=== PATIENT | male | born 1995 | race Caucasian/White ===

== ENCOUNTER 2019-05-29 12:20 | Emergency (ER) | payer SELFPAY ==
--- NOTE | 2019-05-29 13:27 | ER Document Report ---
Addendum entered and electronically signed by BILL JARRELL LPC 05/29/19 15:59: Discharge - Discharge Clinical Impression: ETOH abuse, Alcohol intoxication, Desire for detoxification Condition: Stable Disposition: HOME, SELF-CARE Additional Instructions: *You have been evaluated for medical clearance for detox *Follow up with detox now *Return to ED for worsening condition, changes, needs You have been evaluated by both medical and behavioral health providers while in the emergency department. You have been cleared from both acute medical and psychiatric services. You utilized [facility] to help you obtain voluntary alcohol inpatient detoxification and treatment. your alcohol levels were too high initially for the [facility] and has had time to decrease. They still have a bed available for you. You are to go directly to the [facility] facility upon discharge from the emergency department. Acute Alcohol Intoxication Your evaluation revealed very high levels of alcohol. You can from drinking a large amount of alcohol rapidly! Further, there's the risk of falls, traffic accidents, and fights. A high portion (about 50 percent) of the serious injuries seen in hospital emergency rooms are caused by alcohol. Alcohol overdosage is usually due to an underlying emotional or psychiatric problem. You may benefit from counselling. If "binge" drinking is an ongoing problem for you, or if you drink ANY AMOUNT of alcohol EVERY day, you most likely have a tendency to alcoholism. You should avoid alcohol totally. We can refer you for treatment. Persons with alcohol problems are often also prone to other addictions -- you should discuss any use of medications or drugs with the doctor. You should be watched at home for the next several hours by someone who has not been drinking. Get extra fluids for the next 24 hours. Call the doctor if there is repeated vomiting, increasing headache, decreasing level of alertness, or any other worsening. Follow-Up Plan: [facility] coordinated care with [facility] and the [facility]. The [facility] has bed availability and you are to go directly there from discharge. Referrals: RENATA TSE MD [NO LOCAL MD] - Follow up as needed [facility] [Outside] - Follow up as needed Original Note: ED Medical Screen (RME) - General Chief Complaint: Medical Clearance Stated Complaint: DETOX Time Seen by Provider: 05/29/19 13:09 Primary Care Provider: RENATA TSE MD [Primary Care Provider] - Follow up as needed Mode of Arrival: Ambulatory Information source: Patient Notes: The patient presents to the emergency department with [facility]. Patient reports he drank a large amount of beer this morning. He called [facility] because he wanted to go into detox. [facility] took him to [facility]. He was preadmitted until patient blew 0.31. [facility] sent him over here for medical clearance. Patient denies drug use. Denies all other complaints fever vomiting diarrhea. Patient denies homicidal or suicidal ideations. I have greeted and performed a rapid initial assessment of this patient. A comprehensive ED assessment and evaluation of the patient, analysis of test results and completion of the medical decision making process will be conducted by additional ED providers. Dictation of this chart was performed using voice recognition software; therefore, there may be some unintended grammatical errors. TRAVEL OUTSIDE OF THE [place] IN LAST 30 DAYS: No - Related Data Allergies/Adverse Reactions: No Known Allergies Allergy (Verified 05/29/19 12:21) Past Medical History Psychiatric Medical History: Reports: Hx Depression - Immunizations Hx Diphtheria, Pertussis, Tetanus Vaccination: Yes Physical Exam - Vital signs Vitals: Temp Pulse Resp BP Pulse Ox 98.4 F 90 18 150/101 H 96 05/29/19 12:29 05/29/19 12:29 05/29/19 12:29 05/29/19 12:29 05/29/19 12:29 Course - Vital Signs Vital signs: Temp Pulse Resp BP Pulse Ox 98.4 F 90 18 150/101 H 96 05/29/19 12:29 05/29/19 12:29 05/29/19 12:29 05/29/19 12:29 05/29/19 12:29 Doctor's Discharge - Discharge Referrals: RENATA TSE MD [Primary Care Provider] - Follow up as needed
[2019-05-29 13:42] LABS: ABSOLUTE BASOPHILS # (AUTO) 0.1 10^3/uL (0.0-0.2); ABSOLUTE LYMPHOCYTES (AUTO) 1.6 10^3/uL (0.5-4.7); ABSOLUTE MONOCYTES (AUTO) 0.6 10^3/uL (0.1-1.4); ABSOLUTE NEUT (AUTO) 5.8 10^3/uL (1.7-8.2); BASOPHILS % (AUTO) 1.1 % (0-2); EOSINOPHILS % (AUTO) 0.5 % (0-6); HEMATOCRIT 47.6 % (37.9-51.0); HEMOGLOBIN 16.5 g/dL (13.5-17.0); LYMPHOCYTES % (AUTO) 19.7 % (13-45); MEAN CORPUSCULAR HEMOGLOBIN 36.6 pg (27.0-33.4); MEAN CORPUSCULAR HGB CONC 34.7 g/dL (32.0-36.0); MEAN CORPUSCULAR VOLUME 105 fl (80-97); MONOCYTES % (AUTO) 7.5 % (3-13); PLATELET COUNT 166 10^3/uL (150-450); RED BLOOD COUNT 4.51 10^6/uL (4.35-5.55); RED CELL DISTRIBUTION WIDTH 12.8 % (11.5-14.0); SEGMENTED NEUTROPHILS % (AUTO) 71.2 % (42-78); TOTAL CELLS COUNTED % (AUTO) 100 %; WHITE BLOOD COUNT 8.1 10^3/uL (4.0-10.5)
[2019-05-29 13:44] LABS: APPEARANCE,URINE CLEAR; BILIRUBIN,URINE NEGATIVE (NEGATIVE); COLOR,URINE STRAW; GLUCOSE, URINE NEGATIVE (NEGATIVE); KETONES,URINE NEGATIVE (NEGATIVE); LEUKOCYTE ESTERASE,URINE NEGATIVE (NEGATIVE); NITRITE,URINE NEGATIVE (NEGATIVE); PROTEIN,URINE 30 mg/dL (NEGATIVE); URINE SPECIFIC GRAVITY 1.003; UROBILINOGEN,URINE NEGATIVE mg/dL (<2.0)
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
[2019-05-29 13:59] LABS: URINE AMPHETAMINES SCREEN NEGATIVE; URINE BARBITURATES SCREEN NEGATIVE; URINE BENZODIAZEPINES SCREEN NEGATIVE; URINE COCAINE SCREEN NEGATIVE; URINE MARIJUANA (THC) SCREEN NEGATIVE; URINE METHADONE SCREEN NEGATIVE; URINE PHENCYCLIDINE SCREEN NEGATIVE
[2019-05-29 14:08] LABS: ALBUMIN 4.9 g/dL (3.5-5.0); ALCOHOL 267 mg/dL (NONE DETECTED); ALKALINE PHOSPHATASE 72 U/L (38-126); ANION GAP 12 (5-19); ASPARTATE AMINO TRANSFERASE 99 U/L (17-59); BILIRUBIN,DIRECT 0.3 mg/dL (0.0-0.4); BILIRUBIN,TOTAL 0.8 mg/dL (0.2-1.3); BLOOD UREA NITROGEN 7 mg/dL (7-20); CALCIUM 9.8 mg/dL (8.4-10.2); CARBON DIOXIDE 27 mmol/L (22-30); CHLORIDE 104 mmol/L (98-107); GLUCOSE 97 mg/dL (75-110); POTASSIUM 4.5 mmol/L (3.6-5.0); TOTAL PROTEIN 7.9 g/dL (6.3-8.2)
--- NOTE | 2019-05-29 14:12 | RADIOLOGY REPORT (SQ) ---
EXAM DESCRIPTION: CHEST 2 VIEWS COMPLETED DATE/TIME: 05/29/2019 2:02 pm REASON FOR STUDY: medical clearance COMPARISON: None. EXAM PARAMETERS: NUMBER OF VIEWS: two views TECHNIQUE: Digital Frontal and Lateral radiographic views of the chest acquired. RADIATION DOSE: NA LIMITATIONS: none FINDINGS: LUNGS AND PLEURA: No opacities, masses or pneumothorax. No pleural effusion. MEDIASTINUM AND HILAR STRUCTURES: No masses or contour abnormalities. HEART AND VASCULAR STRUCTURES: Heart normal size. No evidence for failure. BONES: No acute findings. HARDWARE: None in the chest. OTHER: No other significant finding. IMPRESSION: Normal chest x-ray. TECHNICAL DOCUMENTATION: JOB ID: [id number] [email or web address] Reserved Reading location - IP/workstation name: [email or web address]
[2019-05-29 16:35] VITALS: BP 153/96
--- NOTE | 2019-05-29 17:35 | EKG REPORT ---
SEVERITY:- NORMAL ECG - SINUS RHYTHM ST ELEV, PROBABLE NORMAL EARLY REPOL PATTERN : Confirmed by: Sae Rosenbaum MD 29-May-2019 17:34:22
== END 2019-05-29 16:36 | disposition home or self-care (01) ==
LOC: ER 12:20
DX: F10.129 Alcohol abuse with intoxication, unspecified (principal); F17.200 Nicotine dependence, unspecified, uncomplicated; Y90.8 Blood alcohol level of 240 mg/100 ml or more
CPT/HCPCS: 36415; 71046; 80053; 80307; 81001; 85025; 93005; 93010

== ENCOUNTER 2019-06-21 17:07 | Inpatient (IN) | payer SELFPAY ==
[2019-06-21 17:39] LABS: ABSOLUTE EOSINOPHILS # (AUTO) 0.1 10^3/uL (0.0-0.6); ABSOLUTE LYMPHOCYTES (AUTO) 2.6 10^3/uL (0.5-4.7); ABSOLUTE MONOCYTES (AUTO) 0.4 10^3/uL (0.1-1.4); BASOPHILS % (AUTO) 0.5 % (0-2); EOSINOPHILS % (AUTO) 0.7 % (0-6); HEMOGLOBIN 16.4 g/dL (13.5-17.0); LYMPHOCYTES % (AUTO) 31.8 % (13-45); MEAN CORPUSCULAR HEMOGLOBIN 36.2 pg (27.0-33.4); MEAN CORPUSCULAR HGB CONC 34.3 g/dL (32.0-36.0); MEAN CORPUSCULAR VOLUME 106 fl (80-97); MONOCYTES % (AUTO) 4.6 % (3-13); PLATELET COUNT 197 10^3/uL (150-450); RED BLOOD COUNT 4.54 10^6/uL (4.35-5.55); RED CELL DISTRIBUTION WIDTH 13.3 % (11.5-14.0); SEGMENTED NEUTROPHILS % (AUTO) 62.4 % (42-78); TOTAL CELLS COUNTED % (AUTO) 100 %; WHITE BLOOD COUNT 8.1 10^3/uL (4.0-10.5)
[2019-06-21 17:58] LABS: ALBUMIN 4.5 g/dL (3.5-5.0); ALKALINE PHOSPHATASE 64 U/L (38-126); ANION GAP 18 (5-19); ASPARTATE AMINO TRANSFERASE 57 U/L (17-59); BILIRUBIN,DIRECT 0.2 mg/dL (0.0-0.4); BILIRUBIN,TOTAL 0.3 mg/dL (0.2-1.3); BLOOD UREA NITROGEN 9 mg/dL (7-20); CALCIUM 9.2 mg/dL (8.4-10.2); CARBON DIOXIDE 20 mmol/L (22-30); CHLORIDE 108 mmol/L (98-107); GLUCOSE 90 mg/dL (75-110); POTASSIUM 4.3 mmol/L (3.6-5.0); TOTAL PROTEIN 7.3 g/dL (6.3-8.2)
[2019-06-21 18:00] LABS: APPEARANCE,URINE CLEAR; BILIRUBIN,URINE NEGATIVE (NEGATIVE); COLOR,URINE STRAW; GLUCOSE, URINE NEGATIVE (NEGATIVE); KETONES,URINE NEGATIVE (NEGATIVE); LEUKOCYTE ESTERASE,URINE NEGATIVE (NEGATIVE); NITRITE,URINE NEGATIVE (NEGATIVE); PROTEIN,URINE NEGATIVE (NEGATIVE); URINE SPECIFIC GRAVITY 1.004; UROBILINOGEN,URINE NEGATIVE mg/dL (<2.0)
[2019-06-21 18:02] LABS: ACETAMINOPHEN < 10 ug/mL (10-30); SALICYLATE < 1.0 mg/dL (2.0-20.0)
[2019-06-21 18:15] LABS: ALCOHOL 543 mg/dL (NONE DETECTED)
[2019-06-21 18:16] LABS: URINE AMPHETAMINES SCREEN NEGATIVE; URINE BARBITURATES SCREEN NEGATIVE; URINE BENZODIAZEPINES SCREEN NEGATIVE; URINE COCAINE SCREEN NEGATIVE; URINE MARIJUANA (THC) SCREEN NEGATIVE; URINE METHADONE SCREEN NEGATIVE; URINE PHENCYCLIDINE SCREEN NEGATIVE
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
[2019-06-21] MEDS ORDERED: DEXTROSE 50%-WATER 25 GM/50 ML DISP.SYRIN IV PRN ×2 (18:47)
[2019-06-21] MEDS ORDERED: HALOPERIDOL LACTATE INJ 5 MG/1 ML VIAL IM PRN (18:47)
[2019-06-21] MEDS ORDERED: GLUCAGON,HUMAN RECOMB 1 MG INJ SUBCUT PRN (18:47)
[2019-06-21] MEDS ORDERED: DEXTROSE 40% GEL 15 GM TUBE PO PRN ×2 (18:47)
--- NOTE | 2019-06-21 18:57 | PDOC H&P ---
History of Present Illness Admission Date/PCP: 06/21/19 18:36 GENESIS FLORES MD History of Present Illness: HALEY QIU is a 23 year old male who according to his mother is a "heavy drinker" and apparently found out he was going to get evicted this morning and told his mother he was going to kill himself somehow. She found him later passed out and unresponsive to sternal rub and so she called EMS. He managed to get him to the hospital and his toxicological screen was negative and he would not admit to taking any substances but his sister said he may have taken a few tabs of Vistaril. His alcohol level was 543. He urinated in his closed and whenever they tried to clean them up he got extremely hostile and combative and they had to call security in and ultimately wound up having to put him in four- point violent restraints. He is been involuntarily committed. Because of his violent behavior in the high likelihood that he will go into alcohol withdrawal, he is being admitted to the ICU. Past Medical History Psychiatric Medical History: Reports: Depression Social History Smoking Status: Current Every Day Smoker Family History Family History: Other - Father is on Neurontin. Parental Family History Reviewed: No - Unable to obtain Children Family History Reviewed: Unknown - Unable to obtain Sibling(s) Family History Reviewed.: No - Unable to obtain Medication/Allergy Allergies/Adverse Reactions: No Known Allergies Allergy (Verified 05/29/19 12:21) Review of Systems ROS unobtainable: Due to mental status Physical Exam General appearance: PRESENT: disheveled, mild distress, other - Acutely intoxicated. ABSENT: cooperative Head exam: ABSENT: atraumatic, normocephalic Eye exam: PRESENT: EOMI. ABSENT: conjunctival injection, nystagmus, scleral icterus Ear exam: PRESENT: normal external ear exam Neck exam: PRESENT: full ROM. ABSENT: JVD Respiratory exam: PRESENT: clear to auscultation sole, symmetrical, unlabored. ABSENT: accessory muscle use, chest wall tenderness, crackles, prolonged expiratory phas, rhonchi, tachypnea, wheezes Cardiovascular exam: PRESENT: RRR, +S1, +S2 Vascular exam: PRESENT: normal capillary refill GI/Abdominal exam: PRESENT: normal bowel sounds, soft. ABSENT: distended, guarding, rebound, tenderness Extremities exam: ABSENT: clubbing, pedal edema Musculoskeletal exam: PRESENT: normal inspection. ABSENT: deformity Neurological exam: PRESENT: altered, awake, oriented to person, oriented to place. ABSENT: oriented to time, oriented to situation Psychiatric exam: PRESENT: agitated, anxious, suicidal ideation Skin exam: PRESENT: dry, warm Results Laboratory Results: 06/21/19 17:20 06/21/19 17:20 06/21/19 06/21/19 06/21/19 17:20 17:20 17:20 WBC 8.1 RBC 4.54 Hgb 16.4 Hct 48.0 MCV 106 H MCH 36.2 H MCHC 34.3 RDW 13.3 Plt Count 197 Seg Neutrophils % 62.4 Sodium 145.6 H Potassium 4.3 Chloride 108 H Carbon Dioxide 20 L Anion Gap 18 BUN 9 Creatinine 0.71 Est GFR ( Amer) > 60 Glucose 90 Calcium 9.2 Total Bilirubin 0.3 AST 57 Alkaline Phosphatase 64 Total Protein 7.3 Albumin 4.5 Urine Color STRAW Urine Appearance CLEAR Urine pH 5.0 Ur Specific [place] 1.004 Urine Protein NEGATIVE Urine Glucose (UA) NEGATIVE Urine Ketones NEGATIVE Urine Blood NEGATIVE Urine Nitrite NEGATIVE Ur Leukocyte Esterase NEGATIVE Urine WBC (Auto) 1 Urine RBC (Auto) 0 Assessment and Plan - Diagnosis (1) Alcohol intoxication Qualifiers: Complication of substance-induced condition: with delirium Qualified Code(s): F10.921 - Alcohol use, unspecified with intoxication delirium Is this a current diagnosis for this admission?: Yes Plan: We have to let his Mental status clear so that he can have a proper mental health evaluation. There is a high likelihood that he will go into withdrawal. Apparently he was in a detox recently but left after 4 days and is a daily drinker. Not sure of the amount, but his mother says he drinks heavily. He was extremely combative and agitated and so he is in violent restraints for his safety and for the safety of others. (2) Suicidal ideation Is this a current diagnosis for this admission?: Yes Plan: As noted above, we have let his mental status clear up so that we can get a proper behavioral health evaluation. - Time Time Spent with patient: 35 or more minutes - Inpatient Certification Based on my medical assessment, after consideration of the patient's comorbidities, presenting symptoms, or acuity I expect that the services needed warrant INPATIENT care.: Yes I certify that my determination is in accordance with my understanding of Medicare's requirements for reasonable and necessary INPATIENT services [42 CFR 412.3e].: Yes Medical Necessity: Need Close Monitoring Due to Risk of Patient Decompensation, Need For Continuous Telemetry Monitoring, Need for Neurological Checks, Risk of Complication if Not Cared For in Hospital
[2019-06-21] MEDS: LORAZEPAM INJ 2 MG/1 ML VIAL IV PRN (20:48)
[2019-06-21] MEDS: RINGERS SOLUTION,LACTATED 1,000 ML IV PRN (20:48)
[2019-06-22] MEDS: HEPARIN SOD (PORCINE) 5,000 UNIT/ML 1 ML VIAL SUBCUT SCH ×4 (01:20→21:11)
[2019-06-22 04:17] LABS: ABSOLUTE EOSINOPHILS # (AUTO) 0.1 10^3/uL (0.0-0.6); ABSOLUTE LYMPHOCYTES (AUTO) 1.9 10^3/uL (0.5-4.7); ABSOLUTE MONOCYTES (AUTO) 0.4 10^3/uL (0.1-1.4); ABSOLUTE NEUT (AUTO) 6.7 10^3/uL (1.7-8.2); BASOPHILS % (AUTO) 0.5 % (0-2); EOSINOPHILS % (AUTO) 0.7 % (0-6); HEMATOCRIT 47.6 % (37.9-51.0); HEMOGLOBIN 16.3 g/dL (13.5-17.0); LYMPHOCYTES % (AUTO) 21.1 % (13-45); MEAN CORPUSCULAR HEMOGLOBIN 36.1 pg (27.0-33.4); MEAN CORPUSCULAR HGB CONC 34.2 g/dL (32.0-36.0); MEAN CORPUSCULAR VOLUME 106 fl (80-97); MONOCYTES % (AUTO) 4.8 % (3-13); PLATELET COUNT 167 10^3/uL (150-450); RED BLOOD COUNT 4.51 10^6/uL (4.35-5.55); SEGMENTED NEUTROPHILS % (AUTO) 72.9 % (42-78); TOTAL CELLS COUNTED % (AUTO) 100 %; WHITE BLOOD COUNT 9.2 10^3/uL (4.0-10.5)
[2019-06-22 04:33] LABS: ANION GAP 16 (5-19); BLOOD UREA NITROGEN 13 mg/dL (7-20); CALCIUM 9.5 mg/dL (8.4-10.2); CARBON DIOXIDE 22 mmol/L (22-30); CHLORIDE 106 mmol/L (98-107); GLUCOSE 77 mg/dL (75-110); POTASSIUM 4.3 mmol/L (3.6-5.0)
[2019-06-22] MEDS: LORAZEPAM INJ 2 MG/1 ML VIAL IV PRN ×10 (09:15→20:46)
--- NOTE | 2019-06-22 09:43 | RADIOLOGY REPORT (SQ) ---
EXAM DESCRIPTION: CHEST SINGLE VIEW COMPLETED DATE/TIME: 06/22/2019 9:29 am REASON FOR STUDY: abnormal lung sounds left side COMPARISON: 05/29/2019 NUMBER OF VIEWS: One view. TECHNIQUE: Single frontal radiographic view of the chest acquired. LIMITATIONS: None. FINDINGS: LUNGS AND PLEURA: No opacities, masses or pneumothorax. No pleural effusion. MEDIASTINUM AND HILAR STRUCTURES: No masses. Contour normal. HEART AND VASCULAR STRUCTURES: Heart normal in size. Normal vasculature. BONES: No acute findings. HARDWARE: None in the chest. OTHER: No other significant finding. IMPRESSION: NO SIGNIFICANT RADIOGRAPHIC FINDING IN THE CHEST. TECHNICAL DOCUMENTATION: JOB ID: [id number] [employer]- All Rights Reserved Reading location - IP/workstation name: [email or web address]
--- NOTE | 2019-06-22 09:53 | EKG REPORT ---
SEVERITY:- BORDERLINE ECG - SINUS TACHYCARDIA PROBABLE LEFT ATRIAL ABNORMALITY : Confirmed by: Sae Rosenbaum MD 22-Jun-2019 09:53:00
[2019-06-22] MEDS: RINGERS SOLUTION,LACTATED 1,000 ML IV PRN ×2 (10:10→20:46)
[2019-06-22] MEDS: CLONIDINE HCL 0.2 MG TABLET PO SCH (12:45)
[2019-06-22] MEDS ORDERED: DIAZEPAM INJ 10 MG/2 ML DISP.SYRIN IV SCH (13:00)
--- NOTE | 2019-06-22 14:09 | PDOC PROGRESS REPORT ---
Subjective Progress Note for:: 06/22/19 Subjective:: This is a 23 yr old male with chronic heavy alcohol abuse (drinks 15 twelve ounce cans of beer a day) who was admitted due to unresponsiveness. He was found to be in alcohol intoxication and reportedly also ingested multiple Vistaril tablets. He was admitted to the ICU as he was requiring violent restraints. No acute event overnight. He appears calm and comfortable this morning and has been off restraints. Later today, he is starting to show signs of alcohol with drawal as he is getting more tremulous, tachycardic and hypertensive. He is coherent and well-oriented at this time. Awaiting further psych eval. Reason For Visit: SUICIDAL IDEATION,ALCOHOL INTOXICATION Physical Exam Vital Signs: Temp Pulse Resp BP Pulse Ox 98.7 F 104 H 15 142/102 H 98 06/22/19 12:00 06/22/19 12:00 06/22/19 12:00 06/22/19 12:00 06/22/19 12:00 Intake & Output 06/21/19 06/22/19 06/23/19 06:59 06:59 06:59 Intake Total 1120 Output Total 0 400 Balance 0 720 Weight 160 lb 14.999 oz General appearance: PRESENT: no acute distress, well-developed, well-nourished Head exam: PRESENT: atraumatic, normocephalic Eye exam: PRESENT: conjunctiva pink, EOMI, PERRLA. ABSENT: scleral icterus Ear exam: PRESENT: normal external ear exam Mouth exam: PRESENT: moist, tongue midline Neck exam: ABSENT: carotid bruit, JVD, lymphadenopathy, thyromegaly Respiratory exam: PRESENT: clear to auscultation sole. ABSENT: rales, rhonchi, wheezes Cardiovascular exam: PRESENT: RRR. ABSENT: diastolic murmur, rubs, systolic murmur Pulses: PRESENT: normal dorsalis pedis pul GI/Abdominal exam: PRESENT: normal bowel sounds, soft. ABSENT: distended, guarding, mass, organolmegaly, rebound, tenderness Rectal exam: PRESENT: deferred Neurological exam: PRESENT: alert, awake, oriented to person, oriented to place, oriented to time, oriented to situation, CN II-XII grossly intact. ABSENT: motor sensory deficit Results Laboratory Results: 06/22/19 03:47 06/22/19 03:47 06/21/19 06/21/19 06/21/19 17:20 17:20 17:20 WBC 8.1 RBC 4.54 Hgb 16.4 Hct 48.0 MCV 106 H MCH 36.2 H MCHC 34.3 RDW 13.3 Plt Count 197 Seg Neutrophils % 62.4 Sodium 145.6 H Potassium 4.3 Chloride 108 H Carbon Dioxide 20 L Anion Gap 18 BUN 9 Creatinine 0.71 Est GFR ( Amer) > 60 Glucose 90 Calcium 9.2 Total Bilirubin 0.3 AST 57 Alkaline Phosphatase 64 Total Protein 7.3 Albumin 4.5 Urine Color STRAW Urine Appearance CLEAR Urine pH 5.0 Ur Specific [place] 1.004 Urine Protein NEGATIVE Urine Glucose (UA) NEGATIVE Urine Ketones NEGATIVE Urine Blood NEGATIVE Urine Nitrite NEGATIVE Ur Leukocyte Esterase NEGATIVE Urine WBC (Auto) 1 Urine RBC (Auto) 0 06/22/19 06/22/19 03:47 03:47 WBC 9.2 RBC 4.51 Hgb 16.3 Hct 47.6 MCV 106 H MCH 36.1 H MCHC 34.2 RDW 13.0 Plt Count 167 Seg Neutrophils % 72.9 Sodium 143.7 Potassium 4.3 Chloride 106 Carbon Dioxide 22 Anion Gap 16 BUN 13 Creatinine 0.72 Est GFR ( Amer) > 60 Glucose 77 Calcium 9.5 Total Bilirubin AST Alkaline Phosphatase Total Protein Albumin Urine Color Urine Appearance Urine pH Ur Specific [place] Urine Protein Urine Glucose (UA) Urine Ketones Urine Blood Urine Nitrite Ur Leukocyte Esterase Urine WBC (Auto) Urine RBC (Auto) Impressions: Chest X-Ray 06/22/19 00:00 IMPRESSION: NO SIGNIFICANT RADIOGRAPHIC FINDING IN THE CHEST. Assessment and Plan - Diagnosis (1) Alcohol dependence with withdrawal Is this a current diagnosis for this admission?: Yes Plan: Continue CIWA. Will add scheduled valium on top of prn Ativan. Will also add clonidine. (2) Acute encephalopathy Is this a current diagnosis for this admission?: Yes Plan: Resolved. Secondary to alcohol intoxication and possible Vistaril ingestion. Off restraints. (3) Alcohol intoxication Qualifiers: Complication of substance-induced condition: with delirium Qualified Code(s): F10.921 - Alcohol use, unspecified with intoxication delirium Is this a current diagnosis for this admission?: Yes Plan: Resolved. - Time Time Spent with patient: 25-34 minutes
--- NOTE | 2019-06-22 16:14 | PSYCHOLOGICAL NOTE ---
Psych Note - Psych Note Date seen by psych provider: 06/22/19 Time seen by psych provider: 12:30 Psych Note: Reason for Consult: Overdose Patient is a 23-year-old male that presents to the emergency department for chief complaint of overdose and suicidal ideation. Patient was unable to wake for evaluation; behavioral health team will attempt again at a later time. Patient is recommended to continue under IVC until he is able to be fully evaluated.
--- NOTE | 2019-06-22 17:33 | RADIOLOGY REPORT (SQ) ---
EXAM DESCRIPTION: CT HEAD WITHOUT COMPLETED DATE/TIME: 06/22/2019 5:22 pm REASON FOR STUDY: possible fall at home, racoon eyes sign COMPARISON: 09/05/2013. TECHNIQUE: Axial images acquired through the brain without intravenous contrast. Images reviewed wi th bone, brain and subdural windows. Additional sagittal and coronal reconstructions were generated. Images stored on PACS. All CT scanners at this facility use dose modulation, iterative reconstruction, and/or weight based d osing when appropriate to reduce radiation dose to as low as reasonably achievable (ALARA). [facility]: Dose Right [facility]: CareDose [facility]: Dose Right [facility]: Teradose 4D [facility]: [employer] RADIATION DOSE: CT Rad equipment meets quality standard of care and radiation dose reduction techniq ues were employed. CTDIvol: 53.2 mGy. DLP: 964 mGy-cm. mGy. LIMITATIONS: None. FINDINGS: VENTRICLES: Normal size and contour. CEREBRUM: No masses. No hemorrhage. No midline shift. No evidence for acute infarction. Normal gra y/white matter differentiation. No areas of low density in the white matter. CEREBELLUM: No masses. No hemorrhage. No alteration of density. No evidence for acute infarction. EXTRAAXIAL SPACES: No fluid collections. No masses. ORBITS AND GLOBE: No intra- or extraconal masses. Normal contour of globe without masses. CALVARIUM: No fracture. PARANASAL SINUSES: No fluid or mucosal thickening. SOFT TISSUES: No mass or hematoma. OTHER: No other significant finding. IMPRESSION: NORMAL BRAIN CT WITHOUT CONTRAST. EVIDENCE OF ACUTE STROKE: NO. COMMENT: Quality ID # [id number]: Final reports with documentation of one or more dose reduction techniques (e.g., Automated exposure control, adjustment of the mA and/or kV according to patient size, use of iterative reconstruction technique) TECHNICAL DOCUMENTATION: JOB ID: [id number] [employer]- All Rights Reserved Reading location - IP/workstation name: [email or web address]
[2019-06-22] MEDS: DIAZEPAM INJ 10 MG/2 ML DISP.SYRIN IV SCH (22:26)
[2019-06-23 04:07] LABS: ABSOLUTE EOSINOPHILS # (AUTO) 0.1 10^3/uL (0.0-0.6); ABSOLUTE LYMPHOCYTES (AUTO) 1.1 10^3/uL (0.5-4.7); ABSOLUTE MONOCYTES (AUTO) 0.3 10^3/uL (0.1-1.4); BASOPHILS % (AUTO) 0.8 % (0-2); EOSINOPHILS % (AUTO) 1.7 % (0-6); HEMATOCRIT 43.2 % (37.9-51.0); HEMOGLOBIN 14.9 g/dL (13.5-17.0); LYMPHOCYTES % (AUTO) 24.3 % (13-45); MEAN CORPUSCULAR HEMOGLOBIN 35.9 pg (27.0-33.4); MEAN CORPUSCULAR HGB CONC 34.4 g/dL (32.0-36.0); MEAN CORPUSCULAR VOLUME 104 fl (80-97); MONOCYTES % (AUTO) 6.4 % (3-13); PLATELET COUNT 123 10^3/uL (150-450); RED BLOOD COUNT 4.14 10^6/uL (4.35-5.55); RED CELL DISTRIBUTION WIDTH 12.6 % (11.5-14.0); SEGMENTED NEUTROPHILS % (AUTO) 66.8 % (42-78); TOTAL CELLS COUNTED % (AUTO) 100 %; WHITE BLOOD COUNT 4.5 10^3/uL (4.0-10.5)
[2019-06-23 04:13] LABS: ANION GAP 7 (5-19); BLOOD UREA NITROGEN 11 mg/dL (7-20); CALCIUM 9.7 mg/dL (8.4-10.2); CARBON DIOXIDE 29 mmol/L (22-30); CHLORIDE 101 mmol/L (98-107); GLUCOSE 87 mg/dL (75-110); POTASSIUM 3.9 mmol/L (3.6-5.0)
[2019-06-23] MEDS: HEPARIN SOD (PORCINE) 5,000 UNIT/ML 1 ML VIAL SUBCUT SCH ×3 (04:59→21:19)
[2019-06-23] MEDS: DIAZEPAM INJ 10 MG/2 ML DISP.SYRIN IV SCH (05:00)
[2019-06-23] MEDS: LORAZEPAM INJ 2 MG/1 ML VIAL IV PRN ×4 (10:18→20:52)
[2019-06-23] MEDS: CLONIDINE HCL 0.2 MG TABLET PO SCH (10:18)
--- NOTE | 2019-06-23 14:25 | PDOC PROGRESS REPORT ---
Subjective Progress Note for:: 06/23/19 Subjective:: This is a 23 yr old male with chronic heavy alcohol abuse (drinks 15 twelve ounce cans of beer a day) who was admitted due to unresponsiveness. He was found to be in alcohol intoxication and reportedly also ingested multiple Vistaril tablets. He was admitted to the ICU as he was requiring violent restraints. 06/22: He appears calm and comfortable this morning and has been off restraints. Later today, he is starting to show signs of alcohol withdrawal as he is getting more tremulous, tachycardic and hypertensive. He is coherent and well-oriented at this time. 06/23: No acute event overnight. He appears to be at his baseline mentation this morning. He is well oriented and denies any acute complaints. Awaiting psych eval. Reason For Visit: SUICIDAL IDEATION,ALCOHOL INTOXICATION Physical Exam Vital Signs: Temp Pulse Resp BP Pulse Ox 99.2 F 59 L 16 130/83 H 97 06/23/19 12:00 06/23/19 12:00 06/23/19 14:00 06/23/19 13:51 06/23/19 14:00 Intake & Output 06/22/19 06/23/19 06/24/19 06:59 06:59 06:59 Intake Total 2115 1480 Output Total 0 1300 1000 Balance 0 815 480 Weight 160 lb 14.999 oz 166 lb 10.711 oz General appearance: PRESENT: no acute distress, well-developed, well-nourished Head exam: PRESENT: atraumatic, normocephalic Eye exam: PRESENT: conjunctiva pink, EOMI, PERRLA. ABSENT: scleral icterus Ear exam: PRESENT: normal external ear exam Mouth exam: PRESENT: moist, tongue midline Neck exam: ABSENT: carotid bruit, JVD, lymphadenopathy, thyromegaly Respiratory exam: PRESENT: clear to auscultation sole. ABSENT: rales, rhonchi, wheezes Cardiovascular exam: PRESENT: RRR. ABSENT: diastolic murmur, rubs, systolic murmur Pulses: PRESENT: normal dorsalis pedis pul GI/Abdominal exam: PRESENT: normal bowel sounds, soft. ABSENT: distended, guarding, mass, organolmegaly, rebound, tenderness Rectal exam: PRESENT: deferred Extremities exam: PRESENT: full ROM. ABSENT: calf tenderness, clubbing, pedal edema Neurological exam: PRESENT: alert, awake, oriented to person, oriented to place, oriented to time, oriented to situation, CN II-XII grossly intact. ABSENT: motor sensory deficit Results Laboratory Results: 06/23/19 03:35 06/23/19 03:35 06/23/19 06/23/19 03:35 03:35 WBC 4.5 RBC 4.14 L Hgb 14.9 Hct 43.2 MCV 104 H MCH 35.9 H MCHC 34.4 RDW 12.6 Plt Count 123 L Seg Neutrophils % 66.8 Sodium 137.1 Potassium 3.9 Chloride 101 Carbon Dioxide 29 Anion Gap 7 BUN 11 Creatinine 0.68 Est GFR ( Amer) > 60 Glucose 87 Calcium 9.7 Impressions: Chest X-Ray 06/22/19 00:00 IMPRESSION: NO SIGNIFICANT RADIOGRAPHIC FINDING IN THE CHEST. Head CT 06/22/19 16:48 IMPRESSION: NORMAL BRAIN CT WITHOUT CONTRAST. EVIDENCE OF ACUTE STROKE: NO. Assessment and Plan - Diagnosis (1) Alcohol dependence with withdrawal Is this a current diagnosis for this admission?: Yes Plan: 06/22: Continue CIWA. Will add scheduled valium on top of prn Ativan. Will also add clonidine. 06/23: Improving. Continue Ativan as needed. Discontinue Valium. (2) Acute encephalopathy Is this a current diagnosis for this admission?: Yes Plan: Resolved. Secondary to alcohol intoxication and possible Vistaril ingestion. Off restraints. (3) Alcohol intoxication Qualifiers: Complication of substance-induced condition: with delirium Qualified Code(s): F10.921 - Alcohol use, unspecified with intoxication delirium Is this a current diagnosis for this admission?: Yes Plan: Resolved. (4) Suicidal ideation Is this a current diagnosis for this admission?: Yes Plan: Awaiting psych eval. - Time Time Spent with patient: 25-34 minutes
--- NOTE | 2019-06-23 17:12 | PSYCHOLOGICAL NOTE ---
Psych Note - Psych Note Date seen by psych provider: 06/23/19 Time seen by psych provider: 11:14 - At 1114 Nurse called to inform patient able to engage in evaluation. Evaluation from [id number]. Psych Note: Presenting Problem: IVC, Alcohol Intoxication, SI. Not able to engage in evaluation initially. Serum Alcohol Level was 543 upon arrival to the ED. He did not recall events but stated his family and medical staff filled him in. He admitted to having an alcohol problem, wanting help, needing help but did not seem committed in follow through (pre contemplative stage of change). he admitted to previous pain pill addiction, went to treatment in [place] for it at age 18-17, would snort whatever until after the program then it was using a pill 1-2 times here and there and now he doesn't touch it. He stated he was at [facility] for detox when it first opened. He denied previous MH to include hospitalizations. He denied SI and previous attempts. He stated he was really drunk, belligerent, probably said he took pills when he didn't. UDS was negative for substances with exception of alcohol. He stated he wanted to talk to natural supports: mother and fiance about treatment then make decision. Patient alert and oriented x5 with more linear thinking, fair eye contact, able to engage in evaluation and carry on dialogue conversation, euthymic mood with congruent affect, conversational speech within normal limits for rate/tone/prosody and no observed psychosis. Diagnosis: Alcohol Use Disorder, Severe Hx Opioid Use Disorder Impression/Plan: Patient is cleared from acute psychiatric services. Recommendation to rescind IVC. He denied current SI, admitted to having alcohol problem and said he wanted help/needed help/did not seem fully committed/wanted to talk with mother and fiance then make decision. Patient alert and oriented x5 with more linear thinking, fair eye contact, able to engage in evaluation and carry on dialogue conversation, euthymic mood with congruent affect, conversational speech within normal limits for rate/tone/prosody and no observed psychosis. Provided outpatient SA resource sheet which highlighted [facility] for if has BCBS (explained the financial services sales representative would run the insurance and let him know what would be covered, mother noted this is not an option patient does not have BCBS), as well as [facility] for assistance with voluntary detox to include how the process works and listed the 6 facilities [facility] refers to. Consulted with Dr. Packer regarding the management and care of patient. ED Physician in agreement with recommendations. Spoke to patient with both mother and fiance present (he gave verbal consent to speak freely in their presence). Patient agreed to voluntary detox and gave verbal consent to coordinate with the [facility] and fax referral packet. Per attending nurse patient to be discharged tomorrow so will providing the linkage to [facility]. Mother given the outpatient SA resource sheet with all detox and [facility] information.
[2019-06-23] MEDS ORDERED: PAROXETINE HCL 20 MG TABLET PO SCH (22:00)
[2019-06-23] MEDS ORDERED: NICOTINE 14 MG/24 HR PATCH.TD24 TD SCH (22:00)
[2019-06-24 04:35] LABS: ABSOLUTE EOSINOPHILS # (AUTO) 0.1 10^3/uL (0.0-0.6); ABSOLUTE LYMPHOCYTES (AUTO) 1.3 10^3/uL (0.5-4.7); ABSOLUTE MONOCYTES (AUTO) 0.4 10^3/uL (0.1-1.4); ABSOLUTE NEUT (AUTO) 3.5 10^3/uL (1.7-8.2); BASOPHILS % (AUTO) 0.4 % (0-2); EOSINOPHILS % (AUTO) 1.2 % (0-6); HEMATOCRIT 43.5 % (37.9-51.0); HEMOGLOBIN 14.9 g/dL (13.5-17.0); LYMPHOCYTES % (AUTO) 24.1 % (13-45); MEAN CORPUSCULAR HEMOGLOBIN 35.9 pg (27.0-33.4); MEAN CORPUSCULAR HGB CONC 34.3 g/dL (32.0-36.0); MEAN CORPUSCULAR VOLUME 105 fl (80-97); MONOCYTES % (AUTO) 7.7 % (3-13); PLATELET COUNT 106 10^3/uL (150-450); RED BLOOD COUNT 4.16 10^6/uL (4.35-5.55); RED CELL DISTRIBUTION WIDTH 12.5 % (11.5-14.0); SEGMENTED NEUTROPHILS % (AUTO) 66.6 % (42-78); TOTAL CELLS COUNTED % (AUTO) 100 %; WHITE BLOOD COUNT 5.2 10^3/uL (4.0-10.5)
[2019-06-24 04:59] LABS: ANION GAP 6 (5-19); BLOOD UREA NITROGEN 8 mg/dL (7-20); CALCIUM 10.3 mg/dL (8.4-10.2); CARBON DIOXIDE 30 mmol/L (22-30); CHLORIDE 102 mmol/L (98-107); GLUCOSE 117 mg/dL (75-110); POTASSIUM 4.2 mmol/L (3.6-5.0)
[2019-06-24] MEDS: HEPARIN SOD (PORCINE) 5,000 UNIT/ML 1 ML VIAL SUBCUT SCH (05:00)
[2019-06-24] MEDS: LORAZEPAM INJ 2 MG/1 ML VIAL IV PRN (08:49)
[2019-06-24] MEDS ORDERED: NICOTINE 14 MG/24 HR PATCH.TD24 TD SCH (10:00)
[2019-06-24] MEDS ORDERED: PAROXETINE HCL 20 MG TABLET PO SCH (10:00)
[2019-06-24 12:13] VITALS: BP 148/82
--- NOTE | 2019-06-24 16:45 | PDOC DISCHARGE SUMMARY ---
General - Admit/Disc Date/PCP Admission Date/Primary Care Provider: 06/21/19 18:36 GENESIS FLORES MD Discharge Date: 06/24/19 - Discharge Diagnosis (1) Alcohol dependence with withdrawal Is this a current diagnosis for this admission?: Yes (2) Acute encephalopathy Is this a current diagnosis for this admission?: Yes (3) Alcohol intoxication Is this a current diagnosis for this admission?: Yes (4) Suicidal ideation Is this a current diagnosis for this admission?: Yes - Additional Information Home Medications: Paroxetine HCl 40 mg PO DAILY 06/21/19 History of Present Illness History of Present Illness: Admitting hospitalist's H&P: HALEY QIU is a 23 year old male who according to his mother is a "heavy drinker" and apparently found out he was going to get evicted this morning and told his mother he was going to kill himself somehow. She found him later passed out and unresponsive to sternal rub and so she called EMS. He managed to get him to the hospital and his toxicological screen was negative and he would not admit to taking any substances but his sister said he may have taken a few tabs of Vistaril. His alcohol level was 543. He urinated in his closed and whenever they tried to clean them up he got extremely hostile and combative and they had to call security in and ultimately wound up having to put him in four- point violent restraints. He is been involuntarily committed. Because of his violent behavior in the high likelihood that he will go into alcohol withdrawal, he is being admitted to the ICU. Hospital Course Hospital Course: This is a 23 yr old male with chronic heavy alcohol abuse (drinks 15 twelve ounce cans of beer a day) who was admitted due to unresponsiveness. He was found to be in alcohol intoxication and reportedly also ingested multiple Vistaril tablets. He was admitted to the ICU as he was requiring violent restraints initially. Patient's encephalopathy did resolve. However he did have alcohol withdrawal and was treated for such. He returned to his baseline. He was also evaluated by psych. Patient is going to be discharged to the Crisis center as arranged by psych team. Physical Exam Vital Signs: Temp Pulse Resp BP Pulse Ox 97.8 F 56 L 16 144/86 H 100 06/24/19 08:33 06/24/19 08:33 06/24/19 08:33 06/24/19 08:33 06/24/19 08:33 Intake & Output 06/23/19 06/24/19 06/25/19 06:59 06:59 06:59 Intake Total 2115 2000 Output Total 1300 1000 Balance 815 1000 Weight 166 lb 10.711 oz 163 lb 12.855 oz General appearance: PRESENT: no acute distress, well-developed, well-nourished Head exam: PRESENT: atraumatic, normocephalic Eye exam: PRESENT: conjunctiva pink, EOMI, PERRLA. ABSENT: scleral icterus Ear exam: PRESENT: normal external ear exam Mouth exam: PRESENT: moist, tongue midline Neck exam: ABSENT: carotid bruit, JVD, lymphadenopathy, thyromegaly Respiratory exam: PRESENT: clear to auscultation sole. ABSENT: rales, rhonchi, wheezes Cardiovascular exam: PRESENT: RRR. ABSENT: diastolic murmur, rubs, systolic murmur Pulses: PRESENT: normal dorsalis pedis pul GI/Abdominal exam: PRESENT: normal bowel sounds, soft. ABSENT: distended, guarding, mass, organolmegaly, rebound, tenderness Rectal exam: PRESENT: deferred Extremities exam: PRESENT: full ROM. ABSENT: calf tenderness, clubbing, pedal edema Neurological exam: PRESENT: alert, awake, oriented to person, oriented to place, oriented to time, oriented to situation, CN II-XII grossly intact. ABSENT: motor sensory deficit Results Laboratory Results: 06/24/19 03:49 06/24/19 03:49 06/24/19 06/24/19 03:49 03:49 WBC 5.2 RBC 4.16 L Hgb 14.9 Hct 43.5 MCV 105 H MCH 35.9 H MCHC 34.3 RDW 12.5 Plt Count 106 L Seg Neutrophils % 66.6 Sodium 138.1 Potassium 4.2 Chloride 102 Carbon Dioxide 30 Anion Gap 6 BUN 8 Creatinine 0.80 Est GFR ( Amer) > 60 Glucose 117 H Calcium 10.3 H Impressions: Chest X-Ray 06/22/19 00:00 IMPRESSION: NO SIGNIFICANT RADIOGRAPHIC FINDING IN THE CHEST. Head CT 06/22/19 16:48 IMPRESSION: NORMAL BRAIN CT WITHOUT CONTRAST. EVIDENCE OF ACUTE STROKE: NO. Qualifiers - * PATIENT BEING DISCHARGED WITH ANY OF THE FOLLOWING DIAGNOSIS: No Acute Heart Failure - Is this a Heart Failure Patient?: No LVEF < 40%?: No- if no continue to question #3 3. Anticoagulant therapy for permanect/persistent/paraoxysmal Afib or Aflutter: N/A
== END 2019-06-24 14:40 | disposition home or self-care (01) | DRG 897 ==
LOC: ER 17:07 → EH 18:36 → ICU 06-22 02:23 → 4S 06-23 20:06
PROVIDERS: ADMIT Family Medicine; ATTEND Family Medicine
DX: F10.239 Alcohol dependence with withdrawal, unspecified (principal); R45.851 Suicidal ideations; F10.221 Alcohol dependence with intoxication delirium; Y90.8 Blood alcohol level of 240 mg/100 ml or more; F32.9 Major depressive disorder, single episode, unspecified; F17.210 Nicotine dependence, cigarettes, uncomplicated; F41.9 Anxiety disorder, unspecified; F15.11 Other stimulant abuse, in remission; F11.11 Opioid abuse, in remission; F12.11 Cannabis abuse, in remission; Z78.1 Physical restraint status
CPT/HCPCS: 36415; 51701; 70450; 71045; 80048; 80053; 80307; 81001; 83735; 84443; 85025; 93005; 93010; 99285; J1644; J2060; J3360; J3490; J7120

== ENCOUNTER 2019-08-26 09:46 | Emergency (ER) | payer OTHER ==
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
[2019-08-26 14:09] VITALS: BP 136/85
== END 2019-08-26 13:44 | disposition home or self-care (01) ==
LOC: ER 09:46
DX: S16.1XXA Strain of muscle, fascia and tendon at neck level, initial encounter (principal); M54.5 Low back pain; V49.50XA Passenger injured in collision with unspecified motor vehicles in traffic accident, initial encounter; F17.210 Nicotine dependence, cigarettes, uncomplicated
CPT/HCPCS: 72050; 72110; 99283

== ENCOUNTER 2019-11-09 10:45 | Emergency (ER) | payer OTHER ==
[2019-11-09 10:50] VITALS: BP 146/95
[2019-11-09] MEDS ORDERED: DEXAMETHASONE SOD PHOS INJ 10 MG/1 ML VIAL IM ONE (10:53)
--- NOTE | 2019-11-09 10:54 | ER Document Report ---
HPI - HPI Time Seen by Provider: 11/09/19 10:50 Notes: Patient is a 24-year-old male with no significant past medical history aside from tobacco abuse who presents complaining of a sore throat that began yesterday. He is able to eat and drink without difficulty otherwise. He is urinating normally. Denies drug allergies. He has no other concerns or complaints at this time. No other recent illness. Denies any headache, fever, neck pain, URI, drooling, hoarseness, chest pain, palpitations, syncope, cough, shortness of breath, wheeze, dyspnea, abdominal pain, nausea/vomiting/diarrhea, urinary retention, dysuria, hematuria, or rash. - ROS Systems Reviewed and Negative: Yes All other systems reviewed and negative - REPRODUCTIVE Reproductive: DENIES: : Past Medical History - Social History Smoking Status: Current Every Day Smoker Family History: Reviewed & Not Pertinent Renal/ Medical History: Denies: Hx Peritoneal Dialysis Psychiatric Medical History: Reports: Hx Depression - Immunizations Hx Diphtheria, Pertussis, Tetanus Vaccination: Yes Vertical Provider Document - CONSTITUTIONAL Agree With Documented VS: Yes Notes: PHYSICAL EXAMINATION: GENERAL: Well-appearing, well-nourished and in no acute distress. A&Ox4. Answers questions appropriately. Moves comfortably w/o notable distress HEAD: Atraumatic, normocephalic. EYES: Pupils equal round and reactive to light, extraocular movements intact, sclera anicteric, conjunctiva are normal. ENT: EAC clear b/l. TM's intact b/l without erythema, fluid, or perforation. Nares patent and with clear discharge. oropharynx mild erythema without exudates. 1+ tonsilar hypertrophy with mild erythema no exudate. No palatine shift. Uvula midline, but mildly inflamed. No tongue protrusion. No drooling, hoarseness, or airway compromise. Moist mucous membranes. No sinus tenderness. NECK: Normal range of motion, supple without lymphadenopathy. No rigidity/ meningismus. LUNGS: Breath sounds clear to auscultation bilaterally and equal. No wheezes rales or rhonchi. No retractions HEART: Regular rate and rhythm without murmurs, rubs, gallops. ABDOMEN: Soft, nontender, nondistended abdomen. No guarding, no rebound. Normal bowel sounds present. No CVA tenderness bilaterally. NEUROLOGICAL: Normal speech, normal gait. PSYCH: Normal mood, normal affect. SKIN: Warm, Dry, normal turgor, no rashes or lesions noted. - INFECTION CONTROL TRAVEL OUTSIDE OF THE [place] IN LAST 30 DAYS: No Course - Re-evaluation Re-evalutation: 11/09/19 11:37 Patient is an afebrile, well-hydrated, 24-year-old male who presents to the emergency department with a sore throat, suspect viral. Vitals are acceptable without significant tachycardia, tachypnea, or hypoxia. PE is otherwise unremarkable. He is nontoxic-appearing and is tolerating p.o. without dif ficulty. Lungs are clear to auscultation bilaterally. Rapid strep was negative with a throat culture pending. No further labs or imaging warranted at this time. Low suspicion for any meningitis, sepsis, peritonsillar/pharyngeal abscess, respiratory compromise, Karlos's, or other emergent systemic condition at this time. Patient is aware this condition can change from initial presentation and he needs to monitor symptoms closely. Pt was given decadron today. Conservative measures otherwise for symptoms. Recheck with your PCM in 2-3 days. Consider consult with ENT next week. Return to the ED with any worsening/concerning symptoms otherwise as reviewed in discharge. Patient is in agreement. - Vital Signs Vital signs: Temp Pulse Resp BP Pulse Ox 98.3 F 79 16 146/95 H 97 11/09/19 10:48 11/09/19 10:48 11/09/19 10:48 11/09/19 10:48 11/09/19 10:48 Discharge - Discharge Clinical Impression: Sore throat Condition: Stable Disposition: HOME, SELF-CARE Instructions: Sore Throat ([facility]) Additional Instructions: Maintain adequate fluid intake Take meds as directed Salt water gargles, throat sprays, mouthwash rinse, peroxide gargles tylenol/ibuprofen as needed over the counter cold medication as needed for symptoms F/u: with your PCM in 2-3 days for a recheck Consider consult with ENT for ongoing/worsening symptoms Return to the ED with any fever, worsening pain, chest pain, neck pain/stiffness, shortness of breath, cough, drooling, trouble swallowing/breathing, abdominal pain, n/v/d, rash, or worsening/concerning symptoms otherwise. Forms: Smoking Cessation Education Referrals: APRYL CORRALES MD [Primary Care Provider] - Follow up as needed SHANDA ABRAMS DO [ASSOCIATE] - Follow up as needed
== END 2019-11-09 11:38 | disposition home or self-care (01) ==
LOC: ER 10:45
DX: J02.9 Acute pharyngitis, unspecified (principal); F17.200 Nicotine dependence, unspecified, uncomplicated
CPT/HCPCS: 99283; 96372; 87070; 87880; J1100